=== PATIENT | male | born 1980 | race Caucasian/White ===

== ENCOUNTER 2019-08-21 01:22 | Emergency (ER) | payer OTHER ==
[~2019-08-21] VITALS: Ht 172.7 cm; Wt 95.3 kg
[2019-08-21 01:33] VITALS: BP 130/88
--- NOTE | 2019-08-21 01:34 | PHYS DOC ---
Adult General Chief Complaint Chief Complaint: HEAD INJURY/TRAUMA HPI HPI Patient is a 38-year-old male who presents with complaint of head and neck pain after slipping and falling on ice. Patient wearing a protective vest and states that he believes that that protect his back during the fall but hit the back of his head with the fall. He denies loss of consciousness but does indicate that he was a little bit dazed immediately after the injury. He also complains of neck pain. Patient rates his pain to be a 6 out of 10. He denies any nausea or vomiting. He describes headache as throbbing in nature. He denies any other injuries.[] Review of Systems Review of Systems Constitutional: Denies fever or chills [] Eyes: Denies change in visual acuity, redness, or eye pain [] Respiratory: Denies cough or shortness of breath [] Cardiovascular: No additional information not addressed in HPI [] Musculoskeletal: Complains of neck pain [] Neurologic: Complains of headache without focal weakness or sensory changes [] All other systems were reviewed and found to be within normal limits, except as documented in this note. Allergies Allergies Allergies Coded Allergies Type Severity Reaction Last Updated Verified No Known Drug Allergies 08/21/19 No Physical Exam Physical Exam Constitutional: Well developed, well nourished, no acute distress, non-toxic appearance. [] HENT: Normocephalic, atraumatic, bilateral external ears normal, oropharynx moist, no oral exudates, nose normal. [] Eyes: PERRLA, EOMI, conjunctiva normal, no discharge. [] Neck: Normal range of motion, with tenderness to palpation posteriorly primarily and suboccipital musculature. [] Cardiovascular:Heart rate regular rhythm, no murmur [] Lungs & Thorax: Bilateral breath sounds clear to auscultation [] Back: No tenderness, no CVA tenderness. [] Extremities: No tenderness, no cyanosis, no clubbing, ROM intact, no edema. [] Neurologic: Alert and oriented X 3, no focal deficits noted. [] EKG EKG [] Radiology/Procedures Radiology/Procedures [] Impressions: CT HEAD AND CERVICAL SPINE WO History: Slipped on ice tonight. Hit back of head. Pain. Comparison: None. Technique: Noncontrast CT imaging was performed of the head and cervical spine. Coronal and sagittal reconstructions were performed. Exposure: One or more of the following individualized dose reduction techniques were utilized for this examination: 1. Automated exposure control 2. Adjustment of the mA and/or kV according to patient size 3. Use of iterative reconstruction technique. Findings: Head CT: No intracranial hemorrhage. No mass effect. No hydrocephalus. Extra-axial spaces are unremarkable. Minimal posterior scalp soft tissue swelling. Imaged orbits are unremarkable. Imaged paranasal sinuses and mastoid air cells are clear. Cervical spine CT: Normal vertebral body height and alignment. No fracture. Congenital fusion C2-C3. Mild multilevel disc height loss. Elongated styloid processes bilaterally, right greater than left. Soft tissues unremarkable. Impression: 1. No acute intracranial abnormality. 2. No acute fracture or subluxation of the cervical spine. Electronically signed by: Richmond Bailey DO (08/21/2019 2:14 AM) [facility] Course & Med Decision Making Course & Med Decision Making Pertinent Labs and Imaging studies reviewed. (See chart for details) [] Dragon Disclaimer Dragon Disclaimer This electronic medical record was generated, in whole or in part, using a voice recognition dictation system. Departure Departure: Impression: Primary Impression: Closed head injury Additional Impression: Cervical strain Disposition: HOME, SELF-CARE Condition: STABLE Patient Instructions: Cervical Sprain, Head Injury, Adult Scripts Tramadol Hcl (TRAMADOL HCL) 50 Mg Tablet 50 MG PO PRN Q6HRS PRN for PAIN, #12 TAB Prov: MASSIMO MCDANIELS Jr., DO 08/21/19 Problem Qualifiers Primary Impression: Closed head injury Encounter type: initial encounter Qualified Codes: S09.90XA - Unspecified injury of head, initial encounter Additional Impression: Cervical strain Encounter type: initial encounter Qualified Codes: S16.1XXA - Strain of muscle, fascia and tendon at neck level, initial encounter MASSIMO MCDANIELS Jr., DO Aug 21, 2019 01:34
[2019-08-21] MEDS ORDERED: HYDROcodone/APAP 5/325MG 1 TAB TABLET PO ONE (02:00)
--- NOTE | 2019-08-21 02:17 | RAD ---
CT HEAD AND CERVICAL SPINE WO History: Slipped on ice tonight. Hit back of head. Pain. Comparison: None. Technique: Noncontrast CT imaging was performed of the head and cervical spine. Coronal and sagittal reconstructions were performed. Exposure: One or more of the following individualized dose reduction techniques were utilized for this examination: 1. Automated exposure control 2. Adjustment of the mA and/or kV according to patient size 3. Use of iterative reconstruction technique. Findings: Head CT: No intracranial hemorrhage. No mass effect. No hydrocephalus. Extra-axial spaces are unremarkable. Minimal posterior scalp soft tissue swelling. Imaged orbits are unremarkable. Imaged paranasal sinuses and mastoid air cells are clear. Cervical spine CT: Normal vertebral body height and alignment. No fracture. Congenital fusion C2-C3. Mild multilevel disc height loss. Elongated styloid processes bilaterally, right greater than left. Soft tissues unremarkable. Impression: 1. No acute intracranial abnormality. 2. No acute fracture or subluxation of the cervical spine. Electronically signed by: Richmond Bailey DO (08/21/2019 2:14 AM) [facility]
[2019-08-21] MEDS ORDERED: TRAM50TA PO (02:26)
== END 2019-08-21 02:34 | disposition home or self-care (01) ==
LOC: ER 01:22
DX: S16.1XXA Strain of muscle, fascia and tendon at neck level, initial encounter (principal); S09.8XXA Other specified injuries of head, initial encounter; W00.0XXA Fall on same level due to ice and snow, initial encounter; Y93.89 Activity, other specified; Y92.89 Other specified places as the place of occurrence of the external cause; Y99.8 Other external cause status
CPT/HCPCS: 70450; 72125; 99284-25

== ENCOUNTER 2020-03-13 00:50 | Emergency (ER) | payer OTHER ==
[~2020-03-13] VITALS: Ht 172.7 cm; Wt 103.0 kg
[~2020-03-13 00:50] MED LIST: TRAM50TA PO
--- NOTE | 2020-03-13 01:15 | PHYS DOC ---
Past History Past Medical History: Anxiety, Depression, Other Additional Past Medical Histor: PTSD Past Surgical History: Other Additional Past Surgical Histo: hernia repair; wisdom tooth extraction Alcohol Use: Occasionally Drug Use: None General Adult EDM: Chief Complaint: FINGER INJURY HPI: HPI: Patient is a 39-year-old male presenting to the ED with a chief complaint of right hand injury. Patient states that during work he was closing a gate when he inadvertently smashed his right ring finger tuft. Patient complains of pain in the right ring finger tuft area. Patient states that his tetanus has been updated 2 years ago. Patient denies any other injury. Review of Systems: Review of Systems: Constitutional: Denies fever or chills Eyes: Denies change in visual acuity HENT: Denies nasal congestion or sore throat Respiratory: Denies cough or shortness of breath Cardiovascular: Denies chest pain or edema GI: Denies abdominal pain, nausea, vomiting, bloody stools or diarrhea : Denies dysuria Musculoskeletal: Complains of pain to his right hand Integument: Denies rash Neurologic: Denies headache, focal weakness or sensory changes Heart Score: Risk Factors: Risk Factors: DM, Current or recent (<one month) smoker, HTN, HLP, family history of CAD, obesity. Risk Scores: Score 0 - 3: 2.5% MACE over next 6 weeks - Discharge Home Score 4 - 6: 20.3% MACE over next 6 weeks - Admit for Clinical Observation Score 7 - 10: 72.7% MACE over next 6 weeks - Early Invasive Strategies Allergies: Allergies: Allergies Coded Allergies Type Severity Reaction Last Updated Verified No Known Drug Allergies 08/21/19 No Physical Exam: PE: Constitutional: Well developed, well nourished, no acute distress, non-toxic appearance. [] HENT: Normocephalic, atraumatic Eyes: EOMI Neck: Normal range of motion, Supple Respiratory: No respiratory distress Extremities: Tenderness to the tuft of the right fourth finger. No obvious nail injury., ROM intact Neurologic: Alert and oriented X 3 EKG: EKG: [] Radiology/Procedures: Radiology/Procedures: [] Impressions: Right hand x-ray IMPRESSION: 1. Longitudinal, nondisplaced fracture through the distal phalanx of the fourth ray without definite DIP joint extension. 2. Moderate associated soft tissue swelling. Course & Med Decision Making: Course & Med Decision Making Pertinent Imaging studies reviewed. (See chart for details) Ordered x-ray of the right hand. Ordered oral tablet of Motrin. An x-ray does shows nondisplaced fracture of the fourth phalanx. Patient will be placed in a finger splint. Patient can be discharged home for outpatient follow-up with hand surgery orthopedic surgery. Post splint check shows that patient has good cap refill and is neurovascularly intact. Discussed results and plan of care with patient. Patient is instructed to follow up with PCP in one to 2 days. Appropriate discharge instructions given to patient to return to the ED or to seek immediate medical evaluation. Patient is instructed to return to the ED if symptoms worsen or if any concerns. Dragon Disclaimer: Dragremberto Disclaimer: This electronic medical record was generated, in whole or in part, using a voice recognition dictation system. Departure Departure: Impression: Primary Impression: Fracture, finger, distal phalanx Disposition: 01 HOME/RESIDENCE PRIOR TO ADM Condition: STABLE Referrals: PCP,NO (PCP) Patient Instructions: Crush Injury, Fingers or Toes, Finger Dislocation- SportsMed Additional Instructions: Please return to the ED if symptoms worsen or if any concerns. Please follow-up with occupational health as this is a work injury. ADRIANO HALL DO Mar 13, 2020 01:15
[2020-03-13] MEDS ORDERED: IBUPROFEN 400 MG TABLET. PO ONE (01:30)
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
[2020-03-13 01:45] VITALS: BP 144/84
== END 2020-03-13 01:45 | disposition home or self-care (01) ==
LOC: ER 00:50
DX: S62.634A Displaced fracture of distal phalanx of right ring finger, initial encounter for closed fracture (principal); W23.0XXA Caught, crushed, jammed, or pinched between moving objects, initial encounter; Y93.89 Activity, other specified; Y92.89 Other specified places as the place of occurrence of the external cause; Y99.0 Civilian activity done for income or pay
CPT/HCPCS: 29130; 73130; 99283

== ENCOUNTER → 2020-04-17 | Outpatient (CLI) | payer OTHER ==
--- NOTE | 2020-04-17 14:49 | RAD ---
EXAM: RIGHT HAND 3 VIEWS. HISTORY: Fracture follow-up. COMPARISON: 03/13/2020. FINDINGS: A nondisplaced comminuted fracture of the fourth distal phalangeal tuft remains in near-anatomic alignment. The fracture line is less distinct suggesting early healing. Other joint spaces and alignment are maintained. IMPRESSION: 1. Early healing of a fourth distal phalangeal tuft fracture. Electronically signed by: Cee Sanchez MD (04/17/2020 2:47 PM) [id number]
== END ==
LOC: PMG 10:57
PROVIDERS: ATTEND Family Medicine
DX: S62.664A Nondisplaced fracture of distal phalanx of right ring finger, initial encounter for closed fracture (principal); X58.XXXA Exposure to other specified factors, initial encounter; Y93.89 Activity, other specified; Y92.89 Other specified places as the place of occurrence of the external cause; Y99.8 Other external cause status
CPT/HCPCS: 73130

== ENCOUNTER 2021-05-16 22:07 | Emergency (ER) | payer OTHER ==
[~2021-05-16] VITALS: Ht 172.7 cm; Wt 105.0 kg
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
[2021-05-16] MEDS ORDERED: cefTRIAXone IM 1 GM VIAL IM ONE (22:30)
[2021-05-16 22:40] VITALS: BP 154/91
[2021-05-16] MEDS ORDERED: DIPH,PERTUSS(ACELL),TET VAC/PF 0.5 ML SYRINGE. VAX IM ONE (22:45)
[2021-05-16] MEDS ORDERED: IV NORMAL SALINE 50ML 50 ML ONE (23:01)
[2021-05-16] MEDS ORDERED: cefTRIAXone SODIUM 1 GM VIAL ONE (23:01)
[2021-05-16] MEDS ORDERED: BACI28.34 TP (23:59)
[2021-05-16] MEDS ORDERED: AMOX1TAB61 PO (23:59)
== END 2021-05-17 00:06 | disposition home or self-care (01) ==
LOC: ER 22:07
DX: S51.852A Open bite of left forearm, initial encounter (principal); W50.3XXA Accidental bite by another person, initial encounter; Y93.89 Activity, other specified; Y92.89 Other specified places as the place of occurrence of the external cause; Y99.8 Other external cause status
CPT/HCPCS: 86592; 86703; 86705; 86709; 86803; 87340; 90471; 90715; 96365; 99284; J0696